=== PATIENT | female | born 1985 | race Native Hawaiian/Other Pacific Islander ===

== ENCOUNTER 2016-11-04 13:49 | Observation (INO) | payer OTHER ==
[~2016-11-04] VITALS: Ht 157.5 cm; Wt 79.4 kg
[2016-11-04 14:35] VITALS: BP 151/99; TEMP 98.6; Ht 157.5 cm; Wt 79.4 kg
[2016-11-04 15:20] LABS: POTASSIUM 3.2 mmol/L (3.6-5.2); SODIUM 135 mmol/L (136-145)
[2016-11-04 15:34] LABS: PLATELET COUNT 300 K/uL (152-353)
[2016-11-04 15:58] VITALS: BP 110/73; TEMP 99.5
[2016-11-04 20:26] VITALS: BP 104/66; TEMP 100.1
[2016-11-05] VITALS: BP 103/56; TEMP 99.1
[2016-11-05 04:00] VITALS: BP 101/56; TEMP 98.4
[2016-11-05 05:55] LABS: POTASSIUM 3.4 mmol/L (3.6-5.2); SODIUM 138 mmol/L (136-145)
[2016-11-05 06:30] LABS: PLATELET COUNT 247 K/uL (152-353)
[2016-11-05 08:00] VITALS: BP 117/76; TEMP 98.4
[2016-11-05 12:00] VITALS: BP 115/76; TEMP 98.9
== END 2016-11-05 13:40 | disposition home or self-care (01) ==
LOC: MED/SURG 13:49
PROVIDERS: Internal Medicine; ADMIT Nurse Practitioner Family
DX: A07.2 Cryptosporidiosis (principal)
CPT/HCPCS: 36591; 80053; 81000; 83735; 85027; 87015; 87045; 87205; 87324; 87328; 87329; 87449; 87899; 96361; 96367; 96374; 99220; G0378; G0379; J1885; J2405; J2550; J3030